=== PATIENT | female | born 1960 | race Caucasian/White ===

== ENCOUNTER 2019-12-18 13:09 | Emergency (ER) | payer OTHER ==
[~2019-12-18] VITALS: Ht 172.7 cm; Wt 63.5 kg
[2019-12-18] MEDS ORDERED: LISINOPRIL-HCT1 EAC2 PO (13:22)
[2019-12-18] MEDS ORDERED: ATENOLOL 50MG T50 MG PO (13:23)
[2019-12-18] MEDS ORDERED: PREDNISONE 20 M20 M1 PO (14:03)
[2019-12-18] MEDS ORDERED: VENTOLIN HFA 1818 GM INH (14:03)
[2019-12-18] MEDS ORDERED: ZPAK PO (14:03)
[2019-12-18 14:14] VITALS: BP 149/73
== END 2019-12-18 14:20 | disposition home or self-care (01) ==
LOC: M.ERS 13:09
DX: J40 Bronchitis, not specified as acute or chronic (principal); I10 Essential (primary) hypertension; F17.210 Nicotine dependence, cigarettes, uncomplicated